=== PATIENT | female | born 1955 | race Two or more races ===

== ENCOUNTER 2016-10-27 05:31 | Outpatient (CLI) | payer BC ==
[~2016-10-27 05:31] MED LIST: SITA1TAB2 PO
[2016-10-27] MEDS ORDERED: IV NS 0.9% 250 ML IV ONE (05:46)
[2016-10-27] MEDS ORDERED: IOHEXOL-300 100 ML VIAL IV ONE (05:46)
[2016-10-27] MEDS ORDERED: CT SWABBABLE VALVE TRANS SET 1 EA INFUS.SET MC ONE (05:46)
== END 2016-10-27 23:59 | disposition home or self-care (01) ==
LOC: CT 05:31
DX: R22.1 Localized swelling, mass and lump, neck (principal)
CPT/HCPCS: 70490; 70491; J7050; Q9967

== ENCOUNTER 2016-11-12 06:29 | Outpatient (CLI) | payer BC ==
[2016-11-12] MEDS ORDERED: GADOVERSETAMIDE 5 MMOL/10 ML VIAL IJ ONE (12:00)
[2016-11-12] MEDS ORDERED: GADOVERSETAMIDE 2.5 MMOL/5 ML VIAL IJ ONE (12:00)
== END 2016-11-12 23:59 | disposition home or self-care (01) ==
LOC: MRI 06:29
DX: M27.40 Unspecified cyst of jaw (principal)
CPT/HCPCS: 70542; A9579 ×2

== ENCOUNTER 2017-10-07 07:52 | Outpatient (CLI) | payer BC | END 2017-10-07 23:59 | disposition home or self-care (01) | LOC: CARD 07:52 | DX: I34.0 Nonrheumatic mitral (valve) insufficiency (principal); I70.0 Atherosclerosis of aorta; I51.7 Cardiomegaly; I25.810 Atherosclerosis of coronary artery bypass graft(s) without angina pectoris | CPT/HCPCS: 93307-TC ==

== ENCOUNTER 2018-08-23 08:34 | Outpatient (CLI) | payer BC ==
[2018-08-23 21:22] LABS: BASOPHILS % (AUTO) 0.4 % (0.0-2.0); EOSINOPHILS % (AUTO) 9.6 % (0.0-6.0); HEMATOCRIT 40 % (33-45); HEMOGLOBIN 13.4 g/dL (11.5-14.8); LYMPHOCYTES # (AUTO) 2.1 /CMM (0.8-4.8); LYMPHOCYTES % (AUTO) 40.8 % (20.0-44.0); MEAN CORPUSCULAR HGB CONC 33 g/dl (31.0-36.0); MEAN CORPUSCULAR VOLUME 88 fL (82-100); MONOCYTES # (AUTO) 0.4 /CMM (0.1-1.30); MONOCYTES % (AUTO) 7.5 % (2.0-12.0); NEUTROPHILS # (AUTO) 2.1 /CMM (1.8-8.9); NEUTROPHILS % (AUTO) 41.7 % (43.0-81.0); PLATELET COUNT (AUTO) 248 /CMM (150-450); RED BLOOD CELL COUNT(AUTO) 4.57 MIL/uL (4.0-5.2); WHITE BLOOD COUNT (AUTO) 5.1 K/uL (4.3-11.0)
[2018-08-23 21:34] LABS: DIGOXIN 0.03 ng/mL (0.90-2.00)
[2018-08-23 21:42] LABS: ALBUMIN 3.6 g/dL (3.4-5.0); BILIRUBIN,TOTAL 0.3 mg/dL (0.2-1.0); CALCIUM, SERUM 9.6 mg/dL (8.5-10.1); CREATININE 0.8 mg/dL (0.6-1.3); POTASSIUM 4.1 mmol/L (3.5-5.1); TOTAL PROTEIN, SERUM 7.2 g/dL (6.4-8.2)
[2018-08-23 21:46] LABS: THYROID STIMULATING HORMONE 2.52 uIU/mL (0.358-3.74)
== END 2018-08-23 23:59 | disposition home or self-care (01) ==
LOC: LAB 08:34
DX: I25.10 Atherosclerotic heart disease of native coronary artery without angina pectoris (principal); I10 Essential (primary) hypertension; E78.5 Hyperlipidemia, unspecified; E11.9 Type 2 diabetes mellitus without complications
CPT/HCPCS: 36415; 80053-TC; 80061-TC; 80162-TC; 83880; 84439-TC; 84443-TC; 84481; 85025-TC

== ENCOUNTER 2019-03-01 05:36 | Outpatient (CLI) | payer BC ==
[2019-03-01 06:33] LABS: BASOPHILS % (AUTO) 0.3 % (0.0-2.0); EOSINOPHILS % (AUTO) 2.9 % (0.0-6.0); HEMATOCRIT 40 % (33-45); HEMOGLOBIN 13.4 g/dL (11.5-14.8); LYMPHOCYTES # (AUTO) 2.1 /CMM (0.8-4.8); LYMPHOCYTES % (AUTO) 40.2 % (20.0-44.0); MEAN CORPUSCULAR HGB CONC 33 g/dl (31.0-36.0); MEAN CORPUSCULAR VOLUME 87 fL (82-100); MONOCYTES # (AUTO) 0.4 /CMM (0.1-1.30); MONOCYTES % (AUTO) 6.9 % (2.0-12.0); NEUTROPHILS # (AUTO) 2.6 /CMM (1.8-8.9); NEUTROPHILS % (AUTO) 49.7 % (43.0-81.0); PLATELET COUNT (AUTO) 247 /CMM (150-450); RED BLOOD CELL COUNT(AUTO) 4.59 MIL/uL (4.0-5.2); WHITE BLOOD COUNT (AUTO) 5.3 K/uL (4.3-11.0)
[2019-03-01 06:55] LABS: DIGOXIN < 0.20 ng/mL (0.90-2.00)
[2019-03-01 07:05] LABS: ALANINE AMINOTRANSFERASE 28 U/L (12-78); ALBUMIN 3.6 g/dL (3.4-5.0); ALKALINE PHOSPHATASE 61 U/L (46-116); ASPARTATE AMINOTRANSFERASE 11 U/L (15-37); B-TYPE NATRIURETIC PEPTIDE 150 PG/ML (0-125); BILIRUBIN,TOTAL 0.2 mg/dL (0.2-1.0); CALCIUM, SERUM 9.1 mg/dL (8.5-10.1); CARBON DIOXIDE 25 mmol/L (21-32); CHLORIDE 99 mmol/L (98-107); GLUCOSE 282 mg/dL (74-106); POTASSIUM 3.9 mmol/L (3.5-5.1); SODIUM SERUM 136 mmol/L (136-145); TOTAL PROTEIN, SERUM 7.3 g/dL (6.4-8.2); UREA NITROGEN, BLOOD 22 mg/dL (7-18)
[2019-03-01 07:07] LABS: T4 (THYROXINE) 10.1 ug/dL (4.7-13.3)
[2019-03-01 07:14] LABS: CHOLESTEROL 166 mg/dL (<200); HDL CHOLESTEROL 43 mg/dL (40-60); LDL 93 mg/dL (0-99); TRIGLYCERIDES 285 mg/dL (30-150)
== END 2019-03-01 23:59 | disposition home or self-care (01) ==
LOC: LAB 05:36
DX: I11.9 Hypertensive heart disease without heart failure (principal); E78.5 Hyperlipidemia, unspecified
CPT/HCPCS: 36415; 80053-TC; 80061-TC; 80162-TC; 83880; 84436-TC; 84439-TC; 84443-TC; 85025-TC

== ENCOUNTER 2020-07-22 22:39 | Emergency (ER) | payer BC, OTHER ==
[~2020-07-22] VITALS: Ht 157.5 cm; Wt 56.7 kg
[2020-07-22 22:43] VITALS: BP 143/62
--- NOTE | 2020-07-22 23:11 | NUR ---
COVID SWAB COLLECTED AND SENT TO LAB
--- NOTE | 2020-07-22 23:41 | NUR ---
LAB CALLED REGARDING POSITIVE COVID RESULT.
--- NOTE | 2020-07-23 22:43 | NUR ---
NOTIFIED OF COVID RESULTS, PT IS POSITIVE FOR COVID
== END 2020-07-22 23:27 | disposition home or self-care (01) ==
LOC: ER 22:41
DX: U07.1 COVID-19 (principal); E11.9 Type 2 diabetes mellitus without complications; Z79.84 Long term (current) use of oral hypoglycemic drugs; Z86.79 Personal history of other diseases of the circulatory system; Z95.5 Presence of coronary angioplasty implant and graft
CPT/HCPCS: 71045; 87426; 99284; C9803; U0003

== ENCOUNTER 2021-01-01 02:40 | Outpatient (CLI) | payer BC, OTHER ==
[2021-01-01 04:11] LABS: BASOPHILS % (AUTO) 0.2 % (0.0-2.0); EOSINOPHILS % (AUTO) 1.6 % (0.0-6.0); HEMATOCRIT 38 % (33-45); HEMOGLOBIN 12.7 g/dL (11.5-14.8); LYMPHOCYTES # (AUTO) 2.3 /CMM (0.8-4.8); LYMPHOCYTES % (AUTO) 30.3 % (20.0-44.0); MEAN CORPUSCULAR HGB CONC 33 g/dl (31.0-36.0); MEAN CORPUSCULAR VOLUME 89 fL (82-100); MONOCYTES # (AUTO) 0.4 /CMM (0.1-1.30); MONOCYTES % (AUTO) 5.7 % (2.0-12.0); NEUTROPHILS # (AUTO) 4.7 /CMM (1.8-8.9); NEUTROPHILS % (AUTO) 62.2 % (43.0-81.0); PLATELET COUNT (AUTO) 289 /CMM (150-450); RED BLOOD CELL COUNT(AUTO) 4.28 MIL/uL (4.0-5.2); WHITE BLOOD COUNT (AUTO) 7.5 K/uL (4.3-11.0)
[2021-01-01 04:32] LABS: ALBUMIN 3.6 g/dL (3.4-5.0); BILIRUBIN,TOTAL 0.3 mg/dL (0.2-1.0); CALCIUM, SERUM 9.4 mg/dL (8.5-10.1); CREATININE 0.8 mg/dL (0.6-1.3); POTASSIUM 4.6 mmol/L (3.5-5.1); TOTAL PROTEIN, SERUM 7.3 g/dL (6.4-8.2)
[2021-01-01 04:34] LABS: THYROID STIMULATING HORMONE 1.164 uIU/mL (0.358-3.74)
== END 2021-01-01 23:59 | disposition home or self-care (01) ==
LOC: LAB 02:40
DX: I11.9 Hypertensive heart disease without heart failure (principal); E78.5 Hyperlipidemia, unspecified
CPT/HCPCS: 36415; 80053-TC; 80061-TC; 82306; 83880; 84443-TC; 85025-TC

== ENCOUNTER 2021-04-03 01:29 | Outpatient (CLI) | payer BC, OTHER ==
[2021-04-03 02:00] LABS: BASOPHILS % (AUTO) 0.5 % (0.0-2.0); EOSINOPHILS % (AUTO) 1.8 % (0.0-6.0); HEMATOCRIT 37 % (33-45); HEMOGLOBIN 12.3 g/dL (11.5-14.8); LYMPHOCYTES # (AUTO) 1.8 K/uL (0.8-4.8); MEAN CORPUSCULAR HGB CONC 34 g/dl (31.0-36.0); MEAN CORPUSCULAR VOLUME 87 fL (82-100); MONOCYTES # (AUTO) 0.3 K/uL (0.1-1.30); MONOCYTES % (AUTO) 5.6 % (2.0-12.0); NEUTROPHILS # (AUTO) 3.8 K/uL (1.8-8.9); NEUTROPHILS % (AUTO) 62.1 % (43.0-81.0); PLATELET COUNT (AUTO) 290 K/uL (150-450); RED BLOOD CELL COUNT(AUTO) 4.22 MIL/uL (4.0-5.2); WHITE BLOOD COUNT (AUTO) 6.1 K/uL (4.3-11.0)
[2021-04-03 02:25] LABS: ALBUMIN 3.4 g/dL (3.4-5.0); BILIRUBIN,TOTAL 0.2 mg/dL (0.2-1.0); CALCIUM, SERUM 8.7 mg/dL (8.5-10.1); CREATININE 0.6 mg/dL (0.6-1.3); POTASSIUM 4.5 mmol/L (3.5-5.1)
[2021-04-03 02:32] LABS: DIGOXIN 0.1 ng/mL (0.90-2.00)
[2021-04-03 02:42] LABS: THYROID STIMULATING HORMONE 0.989 uIU/mL (0.358-3.74)
== END 2021-04-03 23:59 | disposition home or self-care (01) ==
LOC: LAB 01:29
DX: I10 Essential (primary) hypertension (principal); I25.10 Atherosclerotic heart disease of native coronary artery without angina pectoris; E78.5 Hyperlipidemia, unspecified
CPT/HCPCS: 36415; 80053-TC; 80061-TC; 80162-TC; 83880; 84436-TC; 84443-TC; 84481; 85025-TC

== ENCOUNTER 2021-08-09 14:37 | Emergency (ER) | payer BC, OTHER ==
[~2021-08-09] VITALS: Ht 154.9 cm; Wt 59.0 kg
[2021-08-09 14:53] VITALS: BP 105/62
--- NOTE | 2021-08-09 15:27 | NUR ---
SEEN AND EXAMINED BY HERMINIA SPENCER.
--- NOTE | 2021-08-09 15:35 | NUR ---
FILLER MIXER AT BEDSIDE FOR XRAY.
[2021-08-09] MEDS ORDERED: CYCL10TA9 PO (16:28)
[2021-08-09] MEDS ORDERED: NAPR500T6 PO (16:28)
--- NOTE | 2021-08-09 16:33 | NUR ---
Patient discharged to home in stable condition. Written and verbal after care instructions given. Patient verbalizes understanding of instruction.
== END 2021-08-09 16:34 | disposition home or self-care (01) ==
LOC: ER 14:39
DX: S16.1XXA Strain of muscle, fascia and tendon at neck level, initial encounter (principal); M75.31 Calcific tendinitis of right shoulder; M62.838 Other muscle spasm; V43.62XA Car passenger injured in collision with other type car in traffic accident, initial encounter; Y93.89 Activity, other specified; Y92.410 Unspecified street and highway as the place of occurrence of the external cause; Y99.8 Other external cause status
CPT/HCPCS: 73030-TC

== ENCOUNTER 2021-08-27 00:32 | Emergency (ER) | payer BC, OTHER ==
[~2021-08-27] VITALS: Ht 154.9 cm; Wt 58.1 kg
[~2021-08-27 00:32] MED LIST changes: +CYCL10TA9 PO; +NAPR500T6 PO
[2021-08-27 00:42] VITALS: BP 113/72
== END 2021-08-27 04:21 | disposition home or self-care (01) ==
LOC: ER 00:34
DX: R53.1 Weakness (principal); J02.9 Acute pharyngitis, unspecified; Z20.822 Contact with and (suspected) exposure to COVID-19; I10 Essential (primary) hypertension; E11.9 Type 2 diabetes mellitus without complications; Z79.84 Long term (current) use of oral hypoglycemic drugs
CPT/HCPCS: 87426; 99283; C9803 ×2; U0003

== ENCOUNTER 2022-01-27 07:14 | Outpatient (CLI) | payer BC, OTHER | END 2022-01-27 23:59 | disposition home or self-care (01) | LOC: CARD 07:14 | DX: Z09 Encounter for follow-up examination after completed treatment for conditions other than malignant neoplasm (principal); I34.0 Nonrheumatic mitral (valve) insufficiency | CPT/HCPCS: 93307-TC ==

== ENCOUNTER 2022-02-10 00:04 | Emergency (ER) | payer BC, OTHER ==
[~2022-02-10] VITALS: Ht 157.5 cm; Wt 58.1 kg
[2022-02-10 00:05] VITALS: BP 143/76
--- NOTE | 2022-02-10 00:09 | NUR ---
BIBSELF C/O SORE THROAT AND COUGH. PT A/OX4. TOLERATING R/A WELL WITH NO SOB.
--- NOTE | 2022-02-10 00:48 | NUR ---
COVID ANTIGEN SWAB COLLECTED AND SENT TO LAB
--- NOTE | 2022-02-10 00:56 | NUR ---
Patient discharged to home in stable condition. Written and verbal after care instructions given. Patient verbalizes understanding of instruction. PT ambulatory with a steady gait
== END 2022-02-10 00:56 | disposition home or self-care (01) ==
LOC: ER 00:06
DX: J02.9 Acute pharyngitis, unspecified (principal); Z20.822 Contact with and (suspected) exposure to COVID-19; I10 Essential (primary) hypertension; E11.9 Type 2 diabetes mellitus without complications; Z79.84 Long term (current) use of oral hypoglycemic drugs
CPT/HCPCS: 99283; C9803; U0003

== ENCOUNTER 2022-02-24 00:21 | Emergency (ER) | payer BC, OTHER ==
[~2022-02-24] VITALS: Ht 157.5 cm; Wt 63.5 kg
[2022-02-24 00:24] VITALS: BP 131/80
== END 2022-02-24 00:57 | disposition home or self-care (01) ==
LOC: ER 00:23
DX: Z20.822 Contact with and (suspected) exposure to COVID-19 (principal); I10 Essential (primary) hypertension; E11.9 Type 2 diabetes mellitus without complications; Z79.84 Long term (current) use of oral hypoglycemic drugs; Z79.899 Other long term (current) drug therapy
CPT/HCPCS: 99283; 87426; C9803

== ENCOUNTER 2022-07-14 07:13 | Outpatient (CLI) | payer BC, OTHER ==
[2022-07-14 23:44] LABS: BASOPHILS % (AUTO) 0.3 % (0.0-2.0); EOSINOPHILS % (AUTO) 4.2 % (0.0-6.0); HEMATOCRIT 38 % (33-45); HEMOGLOBIN 12.2 g/dL (11.5-14.8); LYMPHOCYTES # (AUTO) 1.9 K/uL (0.8-4.8); LYMPHOCYTES % (AUTO) 24.3 % (20.0-44.0); MEAN CORPUSCULAR HGB CONC 32 g/dl (31.0-36.0); MEAN CORPUSCULAR VOLUME 87 fL (82-100); MONOCYTES # (AUTO) 0.4 K/uL (0.1-1.30); NEUTROPHILS # (AUTO) 5.2 K/uL (1.8-8.9); NEUTROPHILS % (AUTO) 66.2 % (43.0-81.0); PLATELET COUNT (AUTO) 282 K/uL (150-450); RED BLOOD CELL COUNT(AUTO) 4.39 MIL/uL (4.0-5.2); WHITE BLOOD COUNT (AUTO) 7.9 K/uL (4.3-11.0)
[2022-07-15 00:35] LABS: THYROID STIMULATING HORMONE 1.764 uIU/mL (0.358-3.74)
[2022-07-15 00:45] LABS: ALBUMIN 3.2 g/dL (3.4-5.0); BILIRUBIN,TOTAL 0.2 mg/dL (0.2-1.0); POTASSIUM 4.6 mmol/L (3.5-5.1); TOTAL PROTEIN, SERUM 6.9 g/dL (6.4-8.2)
== END 2022-07-14 23:59 | disposition home or self-care (01) ==
LOC: LAB 07:13
PROVIDERS: ATTEND Specialist
DX: E11.9 Type 2 diabetes mellitus without complications (principal); I11.9 Hypertensive heart disease without heart failure; E78.5 Hyperlipidemia, unspecified
CPT/HCPCS: 36415; 80053-TC; 80061-TC; 83880; 84443-TC; 85025-TC

== ENCOUNTER 2022-11-05 06:57 | Outpatient (CLI) | payer BC, OTHER ==
[2022-11-05 08:40] LABS: BASOPHILS % (AUTO) 0.3 % (0.0-2.0); EOSINOPHILS % (AUTO) 13.6 % (0.0-6.0); HEMATOCRIT 38 % (33-45); HEMOGLOBIN 12.3 g/dL (11.5-14.8); LYMPHOCYTES % (AUTO) 29.5 % (20.0-44.0); MEAN CORPUSCULAR HGB CONC 33 g/dl (31.0-36.0); MEAN CORPUSCULAR VOLUME 85 fL (82-100); MONOCYTES # (AUTO) 0.3 K/uL (0.1-1.30); MONOCYTES % (AUTO) 4.5 % (2.0-12.0); NEUTROPHILS # (AUTO) 3.5 K/uL (1.8-8.9); NEUTROPHILS % (AUTO) 52.1 % (43.0-81.0); PLATELET COUNT (AUTO) 300 K/uL (150-450); RED BLOOD CELL COUNT(AUTO) 4.44 MIL/uL (4.0-5.2); WHITE BLOOD COUNT (AUTO) 6.7 K/uL (4.3-11.0)
[2022-11-05 11:48] LABS: ALBUMIN 3.2 g/dL (3.4-5.0); BILIRUBIN,TOTAL 0.2 mg/dL (0.2-1.0); CALCIUM, SERUM 9.2 mg/dL (8.5-10.1); POTASSIUM 4.1 mmol/L (3.5-5.1); TOTAL PROTEIN, SERUM 6.8 g/dL (6.4-8.2)
[2022-11-05 12:01] LABS: T4 (THYROXINE) 9.2 ug/dL (4.7-13.3); THYROID STIMULATING HORMONE 1.682 uIU/mL (0.358-3.74)
== END 2022-11-05 23:59 | disposition home or self-care (01) ==
LOC: LAB 06:57
PROVIDERS: ATTEND Specialist
DX: I25.10 Atherosclerotic heart disease of native coronary artery without angina pectoris (principal); E78.5 Hyperlipidemia, unspecified
CPT/HCPCS: 36415; 80053-TC; 80061-TC; 83880; 84436-TC; 84439-TC; 84443-TC; 85025-TC

== ENCOUNTER 2023-01-21 07:07 | Outpatient (CLI) | payer BC, OTHER ==
[2023-01-21 09:03] LABS: BASOPHILS % (AUTO) 0.3 % (0.0-2.0); EOSINOPHILS % (AUTO) 9.6 % (0.0-6.0); HEMATOCRIT 36 % (33-45); HEMOGLOBIN 11.6 g/dL (11.5-14.8); LYMPHOCYTES # (AUTO) 2.5 K/uL (0.8-4.8); LYMPHOCYTES % (AUTO) 35.4 % (20.0-44.0); MEAN CORPUSCULAR HGB CONC 32 g/dl (31.0-36.0); MEAN CORPUSCULAR VOLUME 86 fL (82-100); MONOCYTES # (AUTO) 0.4 K/uL (0.1-1.30); MONOCYTES % (AUTO) 5.8 % (2.0-12.0); NEUTROPHILS # (AUTO) 3.5 K/uL (1.8-8.9); NEUTROPHILS % (AUTO) 48.9 % (43.0-81.0); PLATELET COUNT (AUTO) 275 K/uL (150-450); RED BLOOD CELL COUNT(AUTO) 4.18 MIL/uL (4.0-5.2); WHITE BLOOD COUNT (AUTO) 7.1 K/uL (4.3-11.0)
[2023-01-21 09:42] LABS: ALANINE AMINOTRANSFERASE 22 U/L (12-78); ALBUMIN 3.2 g/dL (3.4-5.0); ALKALINE PHOSPHATASE 60 U/L (46-116); ASPARTATE AMINOTRANSFERASE 14 U/L (15-37); BILIRUBIN,TOTAL 0.4 mg/dL (0.2-1.0); CALCIUM, SERUM 8.9 mg/dL (8.5-10.1); CARBON DIOXIDE 28 mmol/L (21-32); CHLORIDE 101 mmol/L (98-107); CHOLESTEROL 159 mg/dL (<200); CREATININE 0.9 mg/dL (0.6-1.3); FREE T4 (FREE THYROXINE) 1.31 ng/dL (0.76-1.46); GLUCOSE 187 mg/dL (74-106); HDL CHOLESTEROL 52 mg/dL (40-60); LDL 84 mg/dL (0-99); MAGNESIUM 2.1 mg/dL (1.8-2.4); POTASSIUM 4.3 mmol/L (3.5-5.1); SODIUM SERUM 136 mmol/L (136-145); T4 (THYROXINE) 9.5 ug/dL (4.7-13.3); THYROID STIMULATING HORMONE 1.041 uIU/mL (0.358-3.74); TRIGLYCERIDES 175 mg/dL (30-150); UREA NITROGEN, BLOOD 27 mg/dL (7-18)
[2023-01-22 11:33] LABS: DIGOXIN < 0.20 ng/mL (0.90-2.00)
== END 2023-01-21 23:59 | disposition home or self-care (01) ==
LOC: LAB 07:07
PROVIDERS: ATTEND Specialist
DX: E11.9 Type 2 diabetes mellitus without complications (principal); I10 Essential (primary) hypertension; E78.5 Hyperlipidemia, unspecified
CPT/HCPCS: 36415; 80053-TC; 80061-TC; 80162-TC; 82306; 83735-TC; 83880; 84436-TC; 84439-TC; 84443-TC; 84479; 85025-TC

== ENCOUNTER 2024-07-25 08:01 | Emergency (ER) | payer BC, OTHER ==
[~2024-07-25] VITALS: Ht 157.5 cm; Wt 63.5 kg
[2024-07-25 08:18] VITALS: BP 144/84; TEMP 97.7; O2SAT 99
[2024-07-25] MEDS ORDERED: AZITHROMYCIN 250 MG TABLET PO ONE (11:00)
== END 2024-07-25 11:00 | disposition home or self-care (01) ==
LOC: ER 08:07
DX: Z20.811 Contact with and (suspected) exposure to meningococcus (principal); I10 Essential (primary) hypertension; E11.9 Type 2 diabetes mellitus without complications

== ENCOUNTER 2024-09-12 07:20 | Emergency (ER) | payer OTHER ==
[~2024-09-12] VITALS: Ht 157.5 cm; Wt 63.5 kg
[2024-09-12 07:29] VITALS: BP 145/78; TEMP 98.4
[2024-09-12 07:36] VITALS: O2SAT 99
== END 2024-09-12 07:37 | disposition home or self-care (01) ==
LOC: ER 07:24
DX: M25.551 Pain in right hip (principal); I10 Essential (primary) hypertension; E11.9 Type 2 diabetes mellitus without complications; Z60.2 Problems related to living alone; W01.0XXA Fall on same level from slipping, tripping and stumbling without subsequent striking against object, initial encounter; Y93.89 Activity, other specified; Y92.89 Other specified places as the place of occurrence of the external cause; Y99.8 Other external cause status

== ENCOUNTER 2025-03-20 04:18 | Inpatient (IN) | payer BC, OTHER ==
[~2025-03-20] VITALS: Ht 157.5 cm; Wt 64.0 kg
[2025-03-20] MEDS: IV NS 0.9% 1,000 ML BAG IV ONE (04:26)
[2025-03-20 04:45] LABS: PLATELET COUNT (AUTO) 332 K/uL (150-450); RED BLOOD CELL COUNT(AUTO) 3.40 MIL/uL (4.0-5.2); RED CELL DISTRIBUTION WIDTH 13.4 % (11.5-15.0); WHITE BLOOD COUNT (AUTO) 12.1 K/uL (4.3-11.0)
[2025-03-20 04:52] LABS: CALCIUM, SERUM 8.1 mg/dL (8.5-10.1); CREATININE 1.7 mg/dL (0.6-1.3); SODIUM SERUM 132 mmol/L (136-145); UREA NITROGEN, BLOOD 52 mg/dL (7-18)
[2025-03-20 04:57] LABS: INR 1.05 (0.91-1.10)
[2025-03-20 04:59] LABS: ASPARTATE AMINOTRANSFERASE 19 U/L (15-37); TOTAL PROTEIN, SERUM 6.3 g/dL (6.4-8.2)
[2025-03-20] MEDS ORDERED: ASPIRIN EC 81 MG TABLET.DR PO ONE (05:09)
[2025-03-20] MEDS: ASPIRIN EC 81 MG TABLET.DR PO ONE (05:12)
[2025-03-20] MEDS ORDERED: ONDANSETRON HCL/PF 4 MG/2 ML VIAL ONE (05:31)
[2025-03-20] MEDS: ONDANSETRON HCL/PF - ER 4 MG/2 ML VIAL IV ONE (05:35)
[2025-03-20] MEDS ORDERED: ASPIRIN 81 MG TAB.CHEW ONE (05:47)
[2025-03-20] MEDS ORDERED: Z GUARD REMEDY 4 OZ OINT TP PRN (06:00)
[2025-03-20] MEDS ORDERED: DEXTROSE 50%-WATER 50 ML DISP.SYRIN IV PRN (06:00)
[2025-03-20] MEDS ORDERED: MAG HYDROX/AL HYDROX/SIMETH 30 ML UDC PO PRN (06:00)
[2025-03-20] MEDS ORDERED: ACETAMINOPHEN 325 MG TABLET PO PRN (06:00)
[2025-03-20] MEDS ORDERED: ONDANSETRON HCL/PF 4 MG/2 ML VIAL IVP PRN (06:00)
[2025-03-20] MEDS ORDERED: MAGNESIUM HYDROXIDE 30 ML UDC PO PRN (06:00)
[2025-03-20 06:29] LABS: LDL 59 mg/dL (0-99)
[2025-03-20] MEDS ORDERED: BISACODYL SUPP (10 MG) 10 MG/SUPP.RECT SUPP.RECT RC PRN (06:30)
[2025-03-20] MEDS ORDERED: MORPHINE SULFATE INJ 4 MG/ML DISP.SYRIN IV PRN (06:30)
[2025-03-20] MEDS: BLOOD SUGAR DIAGNOSTIC 1 EACH STRIP IN SCH (07:30)
[2025-03-20] MEDS: PANTOPRAZOLE 40 MG TABLET.DR PO SCH (08:30)
[2025-03-20] MEDS ORDERED: HYDR100T27 PO (09:00)
[2025-03-20] MEDS ORDERED: CARV12.52 PO (09:00)
[2025-03-20] MEDS ORDERED: DAPA10TA PO (09:00)
[2025-03-20] MEDS ORDERED: INSU100I14 SQ (09:00)
[2025-03-20] MEDS ORDERED: INSU100I30 SQ (09:00)
[2025-03-20] MEDS ORDERED: GABA300C PO (09:00)
[2025-03-20] MEDS: HEPARIN SODIUM, PORCINE 5000 UNITS/1 ML VIAL SQ SCH (09:14)
[2025-03-20] MEDS: CARVEDILOL 12.5 MG TABLET PO SCH (11:30)
[2025-03-20 12:00] VITALS: BP 115/56; TEMP 97; O2SAT 98
[2025-03-20] MEDS: DAPAGLIFLOZIN PROPANEDIOL 10 MG TABLET PO SCH (12:17)
[2025-03-20] MEDS: INSULIN REGULAR, HUMAN 100 UNIT/ML 3 ML VIAL SQ PRN (12:18)
[2025-03-20] MEDS: IV LR 1000 ML 1,000 ML IV PRN (12:18)
[2025-03-20] MEDS: GABAPENTIN 300 MG CAPSULE PO SCH (12:23)
[2025-03-20] MEDS: HEPARIN INFUSION/D5W 500 ML IV PRN (15:11)
[2025-03-20 16:00] VITALS: BP 122/92; TEMP 97.5; O2SAT 100
[2025-03-20 20:00] VITALS: BP 144/63; TEMP 97.7; O2SAT 97
[2025-03-21] VITALS: BP 133/75; TEMP 98.2; O2SAT 98
[2025-03-21 04:00] VITALS: BP 139/73; TEMP 98.8; O2SAT 97
[2025-03-21 05:37] LABS: PLATELET COUNT (AUTO) 368 K/uL (150-450); RED BLOOD CELL COUNT(AUTO) 3.34 MIL/uL (4.0-5.2); RED CELL DISTRIBUTION WIDTH 13.3 % (11.5-15.0); WHITE BLOOD COUNT (AUTO) 12.0 K/uL (4.3-11.0)
[2025-03-21 05:48] LABS: PHOSPHORUS 3.8 mg/dL (2.5-4.9)
[2025-03-21 05:54] LABS: CALCIUM, SERUM 8.2 mg/dL (8.5-10.1); CREATININE 1.5 mg/dL (0.6-1.3); SODIUM SERUM 136.0 mmol/L (136-145); UREA NITROGEN, BLOOD 51.0 mg/dL (7-18)
[2025-03-21 06:30] LABS: IRON, SERUM 14.0 ug/dl (50-175)
[2025-03-21 08:00] VITALS: BP 145/60; TEMP 98.2; O2SAT 96
[2025-03-21] MEDS: ASPIRIN EC 81 MG TABLET.DR PO SCH (08:08)
[2025-03-21] MEDS: ATORVASTATIN 40 MG TABLET PO SCH (09:38)
[2025-03-21] MEDS ORDERED: HEPARIN INFUSION/D5W 500 ML IV PRN (11:00)
[2025-03-21 12:00] VITALS: BP 118/79; TEMP 97.9; O2SAT 96
[2025-03-21] MEDS: LEVOFLOXACIN 750 MG /D5W 150ML 750 MG in PREMIX 1 EA IV ONE (15:54)
[2025-03-23] MEDS ORDERED: LEVOFLOXACIN 750 MG /D5W 150ML 750 MG in PREMIX 1 EA IV SCH (16:00)
== END 2025-03-21 17:02 | disposition short-term general hospital (02) | DRG 281 ==
LOC: ER 04:19 → TELE1 05:54
PROVIDERS: ADMIT Nurse Practitioner Family; ATTEND Nurse Practitioner Acute Care
DX: I21.4 Non-ST elevation (NSTEMI) myocardial infarction (principal); E44.0 Moderate protein-calorie malnutrition; J90 Pleural effusion, not elsewhere classified; N17.9 Acute kidney failure, unspecified; E87.1 Hypo-osmolality and hyponatremia; D64.9 Anemia, unspecified; E78.5 Hyperlipidemia, unspecified; E88.09 Other disorders of plasma-protein metabolism, not elsewhere classified; Z95.5 Presence of coronary angioplasty implant and graft; Z20.822 Contact with and (suspected) exposure to COVID-19; D72.829 Elevated white blood cell count, unspecified; I25.10 Atherosclerotic heart disease of native coronary artery without angina pectoris; Z87.891 Personal history of nicotine dependence; I12.9 Hypertensive chronic kidney disease with stage 1 through stage 4 chronic kidney disease, or unspecified chronic kidney disease; N18.9 Chronic kidney disease, unspecified; Z68.25 Body mass index [BMI] 25.0-25.9, adult; E11.22 Type 2 diabetes mellitus with diabetic chronic kidney disease; R53.1 Weakness
CPT/HCPCS: 36415; 70450-TC; 71045-TC; 71250-TC; 76770-TC; 80048-TC; 80061-TC; 80076-TC; 82607-TC; 82728-TC; 82962-TC; 83540-TC; 83735-TC; 84100-TC; 84439-TC; 84443-TC; 84484-TC; 85025-TC; 85730-TC; 86850-TC; 93307-TC; 97110-TC; 97116-TC; 97530-TC; A4216; A4223; G0378; J1644; J1815; J1956; J2405; J7120